=== PATIENT | male | born 1995 | race Two or more races ===

== ENCOUNTER 2024-09-25 20:32 | Emergency (ER) | payer MEDICAID, OTHER ==
[~2024-09-25] VITALS: Ht 175.3 cm; Wt 75.0 kg
[2024-09-25 20:36] VITALS: BP 148/100; PULSE 90; RESP 18; O2SAT 98
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
[2024-09-25] MEDS: ACETAMINOPHEN 325 MG TAB PO ONE (21:00)
--- NOTE | 2024-09-25 21:30 | DVH ---
EXAM: XY R ELBOW 3 VIEW XRAY CLINICAL HISTORY: fall COMPARISON: None TECHNIQUE: XY R ELBOW 3 VIEW XRAY Findings/Impression: 3 views of the right elbow. There is no definite evidence of an acute fracture, dislocation, blastic, or lytic lesions. No radiopaque foreign bodies. Trace joint effusion. Mild subcutaneous emphysema in the antecubital fossa.
== END 2024-09-25 21:50 | disposition left against medical advice (07) ==
LOC: ER 20:32 → EDBD 20:32 → ER 21:50
DX: S50.01XA Contusion of right elbow, initial encounter (principal); F32.A Depression, unspecified; V00.131A Fall from skateboard, initial encounter; Y93.51 Activity, roller skating (inline) and skateboarding; Y92.89 Other specified places as the place of occurrence of the external cause; Y99.8 Other external cause status
CPT/HCPCS: 73080